=== PATIENT | female | born 1935 | race Caucasian/White ===

== ENCOUNTER 2017-11-08 23:16 | Inpatient (IN) | payer MEDICARE, OTHER ==
[2017-11-09 00:28] LABS: ANION GAP 11.8 mmol/L (10-20)
[2017-11-09] MEDS ORDERED: Acetaminophen 500 MG Tab PO PRN (02:13)
[2017-11-09] MEDS ORDERED: Docusate Sodium 100 MG Cap PO PRN (02:13)
--- NOTE | 2017-11-09 02:14 | EDM.PDOC ---
ED HPI GENERAL MEDICAL PROBLEM - General Chief Complaint: Genitourinary Problem Stated Complaint: urinary retention Time Seen by Provider: 11/08/17 23:25 Source of Information: Reports: Patient History Limitations: Reports: No Limitations - History of Present Illness INITIAL COMMENTS - FREE TEXT/NARRATIVE: PtVeronique presents to ER with complaints of weakness and dysuria/bladder pain. She was hospitalized from October 17 until October 26 with urosepsis and seizure activity. She was started on Keppra for the seizure activity. She states that she has noticed increased dysuria over the past several days, and complains of weakness. She denies any fever or chills. No nausea, vomiting, or diarrhea. Denies any chest pain or shortness of breath. Location: Reports: Abdomen Quality: Reports: Ache, Burning - Related Data Allergies Allergy/AdvReac Type Severity Reaction Status Date / Time No Known Allergies Allergy Verified 11/08/17 23:55 Home Meds: Home Meds Acetaminophen 1,000 mg PO TID PRN 10/16/17 [History] Apixaban [Eliquis] 5 mg PO BID 10/16/17 [History] Aspirin [Ecotrin] 81 mg PO DAILY 10/16/17 [History] Calcium Carbonate 500 mg PO DAILY 10/16/17 [History] Cholecalciferol (Vitamin D3) [Vitamin D3] 400 unit PO DAILY 10/16/17 [History] Diltiazem HCl [Tiazac] 240 mg PO DAILY 10/16/17 [History] Docusate Sodium [Colace] 100 mg PO BID PRN 10/16/17 [History] Ferrous Sulfate 325 mg PO DAILY 10/16/17 [History] Furosemide 40 mg PO DAILY 10/16/17 [History] Lisinopril 5 mg PO DAILY 10/16/17 [History] Magnesium Oxide [Magnesium] 400 mg PO DAILY 10/16/17 [History] Metoprolol Tartrate 100 mg PO DAILY 10/16/17 [History] Multivitamin [Daily Multiple Vitamin] 1 tab PO DAILY 10/16/17 [History] atorvaSTATin Calcium [Atorvastatin Calcium] 40 mg PO DAILY 10/16/17 [History] levETIRAcetam [Keppra] 1,500 mg PO BID 10/16/17 [History] metFORMIN HCl [Metformin HCl] 1,000 mg PO BIDMEALS 10/16/17 [History] Melatonin 3 mg PO BEDTIME 11/08/17 [History] Phenytoin Sodium Extended 300 mg PO BEDTIME 11/08/17 [History] hydrALAZINE [Apresoline] 50 mg PO TID 11/08/17 [History] Past Medical History HEENT History: Reports: Cataract Cardiovascular History: Reports: Heart Failure, High Cholesterol, Hypertension, Other (See Below) Other Cardiovascular History: paroxysmal atrial fib Genitourinary History: Reports: Renal Disease, UTI, Recurrent, Other (See Below) Other Genitourinary History: urinary hesitancy Musculoskeletal History: Reports: Osteoarthritis Neurological History: Reports: Seizure, Other (See Below) Other Neuro History: stenosis of carotid artery. partial symptomatic epilepsy with complex partial seizures, not intractable, without status epilepticus Endocrine/Metabolic History: Reports: Diabetes, Type II Hematologic History: Reports: Anemia Oncologic (Cancer) History: Reports: Breast - Past Surgical History Cardiovascular Surgical History: Reports: Other (See Below) Other Cardiovascular Surgeries/Procedures: Had carotid surgery, replaced vein with one from leg. GI Surgical History: Reports: Appendectomy, Cholecystectomy, Colonoscopy, Hernia , Abdominal Other GI Surgeries/Procedures: Has colonoscopy [id number] due to pre cancer polyps. Oncologic Surgical History: Reports: Lumpectomy Social & Family History - Family History Family Medical History: Noncontributory - Tobacco Use Smoking Status *Q: Unknown Ever Smoked - Caffeine Use Caffeine Use: Reports: Coffee ED ROS GENERAL - Review of Systems Review Of Systems: ROS reveals no pertinent complaints other than HPI. ED EXAM, GENERAL - Physical Exam Exam: See Below Exam Limited By: No Limitations General Appearance: Alert, WD/WN, No Apparent Distress Eye Exam: Bilateral Eye: EOMI, Normal Fundi, Normal Inspection, PERRL Nose: Normal Inspection, Normal Mucosa, No Blood Throat/Mouth: Normal Inspection, Normal Lips, Normal Teeth, Normal Gums, Normal Oropharynx, Normal Voice, No Airway Compromise Head: Atraumatic, Normocephalic Neck: Normal Inspection, Supple, Non-Tender, Full Range of Motion Respiratory/Chest: No Respiratory Distress, Lungs Clear, Normal Breath Sounds, No Accessory Muscle Use, Chest Non-Tender Cardiovascular: Normal Peripheral Pulses, Regular Rate, Rhythm, No Edema, No Gallop, No JVD, No Murmur, No Rub Peripheral Pulses: 4+: Radial (L), Radial (R) GI/Abdominal: Normal Bowel Sounds, Soft, Non-Tender, No Organomegaly, No Distention, No Abnormal Bruit, No Mass (Female) Exam: Deferred Rectal (Female) Exam: Deferred Back Exam: Normal Inspection, Full Range of Motion, NT Extremities: Normal Inspection, Normal Range of Motion, Non-Tender, Normal Capillary Refill, No Pedal Edema Neurological: Alert, Oriented, CN II-XII Intact, Normal Cognition, Normal Gait, Normal Reflexes, No Motor/Sensory Deficits Psychiatric: Normal Affect, Normal Mood Skin Exam: Warm, Dry, Intact, Normal Color, No Rash Lymphatic: No Adenopathy Course - Vital Signs Last Recorded V/S: Last Vital Signs Temp 36.4 C 11/09/17 01:22 Pulse 89 11/08/17 23:17 Resp 19 11/09/17 01:22 BP 159/55 H 11/09/17 01:22 Pulse Ox 97 11/08/17 23:17 - Orders/Labs/Meds Orders: Active Orders 24 hr Category Date Time Status Patient Status [ADT] Routine ADT 11/09/17 00:56 Active Labs: Laboratory Tests 11/09/17 11/09/17 11/09/17 Range/Units 00:05 00:05 00:05 WBC 10.7 H (4.0-10.0) x10^3/uL RBC 2.93 L (4.00-5.50) x10^6/uL Hgb 8.7 L D (12.0-16.0) g/dL Hct 27.1 L (33.0-47.0) % MCV 92.5 D (78.0-93.0) fL MCH 29.7 (26.0-32.0) pg MCHC 32.1 (32.0-36.0) g/dL RDW Coeff of Chiqui 15.2 H (10.0-15.0) % Plt Count 299 (130-400) x10^3/uL Neut % (Auto) 79.7 (50.0-80.0) % Lymph % (Auto) 9.1 L (25.0-50.0) % [place] % (Auto) 9.1 (2.0-11.0) % Eos % (Auto) 1.4 (0.0-4.0) % Baso % (Auto) 0.7 (0.2-1.2) % Sodium 122 L* (136-145) mmol/L Potassium 3.8 (3.5-5.1) mmol/L Chloride 92 L (98-107) mmol/L Carbon Dioxide 22 (21-32) mmol/L Anion Gap 11.8 (10-20) mmol/L BUN 16 D (7-18) mg/dL Creatinine 1.1 H (0.55-1.02) mg/dL Est Cr Clr Drug Dosing 38.19 mL/min Estimated GFR (MDRD) 48 Glucose 134 H (74-106) mg/dL Lactic Acid 0.9 (0.4-2.0) mmol/L Calcium 9.3 (8.5-10.1) mg/dL Corrected Calcium 10.18 H (8.5-10.1) mg/dL Total Bilirubin 0.4 (0.2-1.0) mg/dL AST 20 (15-37) U/L ALT 25 (14-59) U/L Alkaline Phosphatase 192 H (46-116) U/L Total Protein 7.3 (6.4-8.2) g/dL Albumin 2.9 L (3.4-5.0) g/dL Globulin 4.4 Albumin/Globulin Ratio 0.66 Urine Color (YELLOW) Urine Appearance (CLEAR) Urine pH (5.0-8.0) Ur Specific [place] Urine Protein (NEGATIVE) mg/dL Urine Glucose (UA) (NEGATIVE) mg/dL Urine Ketones (NEGATIVE) mg/dL Urine Occult Blood (NEGATIVE) Urine Nitrite (NEGATIVE) Urine Bilirubin (NEGATIVE) Urine Urobilinogen (0.2) EU/dL Ur Leukocyte Esterase (NEGATIVE) Urine RBC (NOT SEEN) /HPF Urine WBC (NOT SEEN) /HPF Ur Squamous Epith Cells (NEGATIVE) /HPF Urine Bacteria (NEGATIVE) /HPF Urine Mucus (NEGATIVE) /LPF 11/09/17 Range/Units 00:15 WBC (4.0-10.0) x10^3/uL RBC (4.00-5.50) x10^6/uL Hgb (12.0-16.0) g/dL Hct (33.0-47.0) % MCV (78.0-93.0) fL MCH (26.0-32.0) pg MCHC (32.0-36.0) g/dL RDW Coeff of Chiqui (10.0-15.0) % Plt Count (130-400) x10^3/uL Neut % (Auto) (50.0-80.0) % Lymph % (Auto) (25.0-50.0) % [place] % (Auto) (2.0-11.0) % Eos % (Auto) (0.0-4.0) % Baso % (Auto) (0.2-1.2) % Sodium (136-145) mmol/L Potassium (3.5-5.1) mmol/L Chloride (98-107) mmol/L Carbon Dioxide (21-32) mmol/L Anion Gap (10-20) mmol/L BUN (7-18) mg/dL Creatinine (0.55-1.02) mg/dL Est Cr Clr Drug Dosing mL/min Estimated GFR (MDRD) Glucose (74-106) mg/dL Lactic Acid (0.4-2.0) mmol/L Calcium (8.5-10.1) mg/dL Corrected Calcium (8.5-10.1) mg/dL Total Bilirubin (0.2-1.0) mg/dL AST (15-37) U/L ALT (14-59) U/L Alkaline Phosphatase (46-116) U/L Total Protein (6.4-8.2) g/dL Albumin (3.4-5.0) g/dL Globulin Albumin/Globulin Ratio Urine Color Light yellow (YELLOW) Urine Appearance Turbid H (CLEAR) Urine pH 6.5 (5.0-8.0) Ur Specific [place] 1.015 Urine Protein >=300 H (NEGATIVE) mg/dL Urine Glucose (UA) Negative (NEGATIVE) mg/dL Urine Ketones Negative (NEGATIVE) mg/dL Urine Occult Blood Small H (NEGATIVE) Urine Nitrite Negative (NEGATIVE) Urine Bilirubin Negative (NEGATIVE) Urine Urobilinogen 0.2 (0.2) EU/dL Ur Leukocyte Esterase Large H (NEGATIVE) Urine RBC 10-20 H (NOT SEEN) /HPF Urine WBC Packed (NOT SEEN) /HPF Ur Squamous Epith Cells Few H (NEGATIVE) /HPF Urine Bacteria Moderate H (NEGATIVE) /HPF Urine Mucus Not seen (NEGATIVE) /LPF Departure - Departure Time of Disposition: 01:15 Disposition: Admitted As Inpatient 68 Clinical Impression: UTI, Urinary tract infectious disease, Hyponatremia - Discharge Information - Problem List Review Problem List Initiated/Reviewed/Updated: Yes - My Orders Last 24 Hours: My Active Orders 11/09/17 00:56 Patient Status [ADT] Routine - Assessment/Plan Last 24 Hours: My Active Orders 11/09/17 00:56 Patient Status [ADT] Routine Plan: will be admitted acute. Dr. Henriquez is admitting. Please refer to her H and P for orders.
--- NOTE | 2017-11-09 02:20 | PCM.HP ---
H&P History of Present Illness - General Date of Service: 11/09/17 Admit Problem/Dx: Admission Diagnosis/Problem Admission Diagnosis/Problem Hyponatremia Source of Information: Patient History Limitations: Reports: No Limitations - History of Present Illness Initial Comments - Free Text/Narative: Mrs. Vasquez is an 82 yo female who presented to the ER for evaluation of worsening dysuria over the past 2-3 days. She had been hospitalized in [place] from 10/17-10/26 and was discharged with a barnes catheter in place. On 11/05, the catheter was removed and she voided successfully. Ever since then, she has had worsening and worsening dysuria. She has also felt that she was not emptying her bladder well and has been having some lower abdominal and lower back pain. She denies any flank pain, fever, or chills. She states she has a tendency towards sepsis so did not want to wait any longer before coming in. She has also been feeling generally weak ever since she got out of the hospital and that has not gotten worse. Her appetite has not been great but she has still been eating well at her daughter's house. Her hospitalization in [place] involved a significant amount of confusion but she feels she is pretty much back to normal now. She has gained 4 pounds this week, which she attributes to her daughter's good cooking. She has had some lower extremity edema as well as some shortness of breath as well. She has had some nausea but no vomiting. She has been constipated but had some diarrhea 2 days ago after taking milk of magnesia. This is a normal pattern for her. Lower Abdominal Pain Score (Numeric/FACES): 3 - Related Data Allergies/Adverse Reactions: Allergies Allergy/AdvReac Type Severity Reaction Status Date / Time No Known Allergies Allergy Verified 11/08/17 23:55 Home Medications: Home Meds Apixaban [Eliquis] 5 mg PO BID 10/16/17 [History] Aspirin [Ecotrin] 81 mg PO DAILY 10/16/17 [History] Cholecalciferol (Vitamin D3) [Vitamin D3] 400 unit PO DAILY 10/16/17 [History] Diltiazem HCl [Tiazac] 240 mg PO DAILY 10/16/17 [History] Docusate Sodium [Colace] 100 mg PO BID PRN 10/16/17 [History] Furosemide 40 mg PO DAILY 10/16/17 [History] Lisinopril 5 mg PO DAILY 10/16/17 [History] Magnesium Oxide [Magnesium] 400 mg PO DAILY 10/16/17 [History] Metoprolol Tartrate 100 mg PO DAILY 10/16/17 [History] RX: Acetaminophen 1,000 mg PO TID PRN 10/16/17 [History] RX: Calcium Carbonate 500 mg PO DAILY 10/16/17 [History] RX: Ferrous Sulfate 325 mg PO 10/16/17 [History] RX: Multivitamin [Daily Multiple Vitamin] 1 tab PO DAILY 10/16/17 [History] RX: levETIRAcetam [Keppra] 1,500 mg PO BID 10/16/17 [History] atorvaSTATin Calcium [Atorvastatin Calcium] 40 mg PO DAILY 10/16/17 [History] metFORMIN HCl [Metformin HCl] 1,000 mg PO BIDMEALS 10/16/17 [History] RX: Melatonin 3 mg PO BEDTIME 11/08/17 [History] RX: Phenytoin Sodium Extended 300 mg PO BEDTIME 11/08/17 [History] RX: hydrALAZINE [Apresoline] 50 mg PO TID 11/08/17 [History] RX: Omeprazole 20 mg PO DAILY 11/09/17 [History] Past Medical History HEENT History: Reports: Cataract Cardiovascular History: Reports: Heart Failure, High Cholesterol, Hypertension, Other (See Below) Other Cardiovascular History: paroxysmal atrial fib Respiratory History: Reports: None Gastrointestinal History: Reports: Colon Polyp, GERD, GI Bleed Genitourinary History: Reports: Renal Disease, UTI, Recurrent, Other (See Below) Other Genitourinary History: urinary hesitancy Musculoskeletal History: Reports: Osteoarthritis Neurological History: Reports: Seizure, Other (See Below) Other Neuro History: stenosis of carotid artery. partial symptomatic epilepsy with complex partial seizures, not intractable, without status epilepticus Psychiatric History: Reports: None Endocrine/Metabolic History: Reports: Diabetes, Type II Hematologic History: Reports: Anemia Oncologic (Cancer) History: Reports: Breast Dermatologic History: Reports: None - Infectious Disease History Infectious Disease History: Reports: None - Past Surgical History Cardiovascular Surgical History: Reports: Other (See Below) Other Cardiovascular Surgeries/Procedures: Had carotid surgery, replaced vein with one from leg. GI Surgical History: Reports: Appendectomy, Cholecystectomy, Colonoscopy, Hernia , Abdominal Other GI Surgeries/Procedures: Has colonoscopy [id number] due to pre cancer polyps. Oncologic Surgical History: Reports: Biopsy of Breast, Lumpectomy Social & Family History - Family History Neurological: Reports: CVA - Tobacco Use Smoking Status *Q: Former Smoker - Caffeine Use Caffeine Use: Reports: Coffee - Alcohol Use Alcohol Use History: No Alcohol Use in Last Twelve Months: Yes Alcohol Use Frequency: Rarely - Recreational Drug Use Recreational Drug Use: No - Living Situation & Occupation Living situation: Reports: , Alone Occupation: Retired H&P Review of Systems - Review of Systems: Review Of Systems: See Below General: Reports: No Symptoms HEENT: Reports: No Symptoms Pulmonary: Reports: Shortness of Breath. Denies: Cough, Sputum Cardiovascular: Reports: No Symptoms Gastrointestinal: Reports: Abdominal Pain, Nausea. Denies: Black Stool, Bloody Stool, Vomiting Genitourinary: Reports: Dysuria, Frequency, Retention Musculoskeletal: Reports: No Symptoms Skin: Reports: No Symptoms Psychiatric: Reports: No Symptoms Neurological: Reports: No Symptoms Exam - Exam Exam: See Below - Vital Signs Vital Signs: Last Vital Signs Temp 36.4 C 11/09/17 01:22 Pulse 89 11/08/17 23:17 Resp 19 11/09/17 01:22 BP 159/55 H 11/09/17 01:22 Pulse Ox 97 11/08/17 23:17 Weight: 75.296 kg - Exam General: Alert, Oriented (x4) HEENT: Conjunctiva Clear, EOMI, Pupils Equal, Pupils Reactive, Other (lips cracked, mucus membranes slightly dry) Neck: Supple, Trachea Midline. No: Lymphadenopathy, Thyromegaly Lungs: Clear to Auscultation, Normal Respiratory Effort Cardiovascular: Regular Rate, Regular Rhythm, Normal S1, Normal S2 GI/Abdominal Exam: Normal Bowel Sounds, Soft, No Organomegaly, No Distention, No Mass, Tender (mild suprapubic tenderness to palpation without rebound, rigidity, or guarding) Back Exam: Normal Inspection. No: CVA Tenderness (L), CVA Tenderness (R) Extremities: Normal Inspection, Pedal Edema (trace to just above the ankles bilaterally) Peripheral Pulses: 2+: Radial (L), Radial (R) Skin: Warm, Dry, Intact Neuro Extensive - Mental Status: Alert, Oriented x3, Normal Mood/Affect, Normal Cognition, Other (Strength symmetric in all 4 extremities) Neuro Extensive - Motor, Sensory, Reflexes: CN II-XII Intact - Patient Data Lab Results Last 24 hrs: Laboratory Results - last 24 hr 11/09/17 11/09/17 11/09/17 Range/Units 00:05 00:05 00:05 WBC 10.7 H (4.0-10.0) x10^3/uL RBC 2.93 L (4.00-5.50) x10^6/uL Hgb 8.7 L D (12.0-16.0) g/dL Hct 27.1 L (33.0-47.0) % MCV 92.5 D (78.0-93.0) fL MCH 29.7 (26.0-32.0) pg MCHC 32.1 (32.0-36.0) g/dL RDW Coeff of Chiqui 15.2 H (10.0-15.0) % Plt Count 299 (130-400) x10^3/uL Neut % (Auto) 79.7 (50.0-80.0) % Lymph % (Auto) 9.1 L (25.0-50.0) % [place] % (Auto) 9.1 (2.0-11.0) % Eos % (Auto) 1.4 (0.0-4.0) % Baso % (Auto) 0.7 (0.2-1.2) % Sodium 122 L* (136-145) mmol/L Potassium 3.8 (3.5-5.1) mmol/L Chloride 92 L (98-107) mmol/L Carbon Dioxide 22 (21-32) mmol/L Anion Gap 11.8 (10-20) mmol/L BUN 16 D (7-18) mg/dL Creatinine 1.1 H (0.55-1.02) mg/dL Est Cr Clr Drug Dosing 38.19 mL/min Estimated GFR (MDRD) 48 Glucose 134 H (74-106) mg/dL Lactic Acid 0.9 (0.4-2.0) mmol/L Calcium 9.3 (8.5-10.1) mg/dL Corrected Calcium 10.18 H (8.5-10.1) mg/dL Total Bilirubin 0.4 (0.2-1.0) mg/dL AST 20 (15-37) U/L ALT 25 (14-59) U/L Alkaline Phosphatase 192 H (46-116) U/L Total Protein 7.3 (6.4-8.2) g/dL Albumin 2.9 L (3.4-5.0) g/dL Globulin 4.4 Albumin/Globulin Ratio 0.66 Urine Color (YELLOW) Urine Appearance (CLEAR) Urine pH (5.0-8.0) Ur Specific [place] Urine Protein (NEGATIVE) mg/dL Urine Glucose (UA) (NEGATIVE) mg/dL Urine Ketones (NEGATIVE) mg/dL Urine Occult Blood (NEGATIVE) Urine Nitrite (NEGATIVE) Urine Bilirubin (NEGATIVE) Urine Urobilinogen (0.2) EU/dL Ur Leukocyte Esterase (NEGATIVE) Urine RBC (NOT SEEN) /HPF Urine WBC (NOT SEEN) /HPF Ur Squamous Epith Cells (NEGATIVE) /HPF Urine Bacteria (NEGATIVE) /HPF Urine Mucus (NEGATIVE) /LPF 11/09/17 Range/Units 00:15 WBC (4.0-10.0) x10^3/uL RBC (4.00-5.50) x10^6/uL Hgb (12.0-16.0) g/dL Hct (33.0-47.0) % MCV (78.0-93.0) fL MCH (26.0-32.0) pg MCHC (32.0-36.0) g/dL RDW Coeff of Chiqui (10.0-15.0) % Plt Count (130-400) x10^3/uL Neut % (Auto) (50.0-80.0) % Lymph % (Auto) (25.0-50.0) % [place] % (Auto) (2.0-11.0) % Eos % (Auto) (0.0-4.0) % Baso % (Auto) (0.2-1.2) % Sodium (136-145) mmol/L Potassium (3.5-5.1) mmol/L Chloride (98-107) mmol/L Carbon Dioxide (21-32) mmol/L Anion Gap (10-20) mmol/L BUN (7-18) mg/dL Creatinine (0.55-1.02) mg/dL Est Cr Clr Drug Dosing mL/min Estimated GFR (MDRD) Glucose (74-106) mg/dL Lactic Acid (0.4-2.0) mmol/L Calcium (8.5-10.1) mg/dL Corrected Calcium (8.5-10.1) mg/dL Total Bilirubin (0.2-1.0) mg/dL AST (15-37) U/L ALT (14-59) U/L Alkaline Phosphatase (46-116) U/L Total Protein (6.4-8.2) g/dL Albumin (3.4-5.0) g/dL Globulin Albumin/Globulin Ratio Urine Color Light yellow (YELLOW) Urine Appearance Turbid H (CLEAR) Urine pH 6.5 (5.0-8.0) Ur Specific [place] 1.015 Urine Protein >=300 H (NEGATIVE) mg/dL Urine Glucose (UA) Negative (NEGATIVE) mg/dL Urine Ketones Negative (NEGATIVE) mg/dL Urine Occult Blood Small H (NEGATIVE) Urine Nitrite Negative (NEGATIVE) Urine Bilirubin Negative (NEGATIVE) Urine Urobilinogen 0.2 (0.2) EU/dL Ur Leukocyte Esterase Large H (NEGATIVE) Urine RBC 10-20 H (NOT SEEN) /HPF Urine WBC Packed (NOT SEEN) /HPF Ur Squamous Epith Cells Few H (NEGATIVE) /HPF Urine Bacteria Moderate H (NEGATIVE) /HPF Urine Mucus Not seen (NEGATIVE) /LPF Result Diagrams: 11/09/17 00:05 11/09/17 00:05 Дмитрий Results Last 24 hrs: Microbiology 11/09/17 01:10 Anaerobic Blood Culture - Final Blood - Venous - Lab Draw 11/09/17 01:00 Anaerobic Blood Culture - Final Blood - Venous *Q Meaningful Use (ADM) - VTE *Q VTE Anticoagulation Contraindications: Med/TX Not Indicated/Need - Problem List (1) Hyponatremia SNOMED Code(s): 60379867 ICD Code: E87.1 - HYPO-OSMOLALITY AND HYPONATREMIA Status: Acute Current Visit: Yes (2) UTI, Urinary tract infectious disease SNOMED Code(s): 65642625 ICD Code: N39.0 - URINARY TRACT INFECTION, SITE NOT SPECIFIED Status: Acute Current Visit: Yes (3) Anemia SNOMED Code(s): 173882943 ICD Code: D64.9 - ANEMIA, UNSPECIFIED Status: Acute Current Visit: No Qualifiers: Anemia type: iron deficiency Iron deficiency anemia type: chronic blood loss Qualified Code(s): D50.0 - Iron deficiency anemia secondary to blood loss (chronic) (4) Acute kidney injury SNOMED Code(s): 90028094 ICD Code: N17.9 - ACUTE KIDNEY FAILURE, UNSPECIFIED Status: Acute Current Visit: Yes (5) CKD (chronic kidney disease) SNOMED Code(s): 470673107 ICD Code: N18.9 - CHRONIC KIDNEY DISEASE, UNSPECIFIED Status: Chronic Current Visit: No Qualifiers: Chronic kidney disease stage: stage 3 (moderate) Qualified Code(s): N18.3 - Chronic kidney disease, stage 3 (moderate) (6) Seizure disorder SNOMED Code(s): 808987640 ICD Code: G40.909 - EPILEPSY, UNSP, NOT INTRACTABLE, WITHOUT STATUS EPILEPTICUS Status: Chronic Current Visit: Yes (7) DM2 (diabetes mellitus, type 2) SNOMED Code(s): 52100509 ICD Code: E11.9 - TYPE 2 DIABETES MELLITUS WITHOUT COMPLICATIONS Status: Chronic Current Visit: No Qualifiers: Diabetes mellitus fci insulin use: without superintendent container terminal use Diabetes mellitus complication status: without complication Qualified Code(s): E11.9 - Type 2 diabetes mellitus without complications (8) Hypercholesteremia SNOMED Code(s): 14870115 ICD Code: E78.00 - PURE HYPERCHOLESTEROLEMIA, UNSPECIFIED Status: Chronic Current Visit: No (9) Hypertension SNOMED Code(s): 45989815 ICD Code: I10 - ESSENTIAL (PRIMARY) HYPERTENSION Status: Chronic Current Visit: No Qualifiers: Hypertension type: essential hypertension Qualified Code(s): I10 - Essential (primary) hypertension (10) CHF (congestive heart failure) SNOMED Code(s): 32323719 ICD Code: I50.9 - HEART FAILURE, UNSPECIFIED Status: Chronic Current Visit: Yes Qualifiers: Heart failure type: diastolic Heart failure chronicity: chronic Qualified Code(s): I50.32 - Chronic diastolic (congestive) heart failure (11) Atrial fibrillation SNOMED Code(s): 27327794 ICD Code: I48.91 - UNSPECIFIED ATRIAL FIBRILLATION Status: Chronic Current Visit: Yes Qualifiers: Atrial fibrillation type: paroxysmal Qualified Code(s): I48.0 - Paroxysmal atrial fibrillation (12) GERD (gastroesophageal reflux disease) SNOMED Code(s): 243194211 ICD Code: K21.9 - GASTRO-ESOPHAGEAL REFLUX DISEASE WITHOUT ESOPHAGITIS Status: Chronic Current Visit: Yes Qualifiers: Esophagitis presence: esophagitis presence not specified Qualified Code(s) : K21.9 - Gastro-esophageal reflux disease without esophagitis Problem List Initiated/Reviewed/Updated: Yes Orders Last 24hrs: Active Orders 24 hr Category Date Time Status Patient Status [ADT] Routine ADT 11/09/17 00:56 Active Notify Provider Vital Signs [RC] ASDIRECTED Care 11/09/17 02:19 Ordered Oxygen Therapy [RC] PRN Care 11/09/17 02:19 Ordered Up With Assistance [RC] ASDIRECTED Care 11/09/17 02:18 Ordered VTE/DVT Education [RC] PER UNIT ROUTINE Care 11/09/17 02:19 Ordered Vital Signs [RC] Q4H Care 11/09/17 02:19 Ordered Regular Diet [DIET] Diet 11/09/17 Breakfast Ordered BASIC METABOLIC PANEL,BMP [CHEM] Routine Lab 11/09/17 05:11 Ordered CBC WITH AUTO DIFF [HEME] Routine Lab 11/09/17 05:11 Ordered CULTURE BLOOD [BC] Stat Lab 11/09/17 01:00 Results CULTURE BLOOD [BC] Stat Lab 11/09/17 01:10 Results CULTURE URINE [RM] Routine Lab 11/09/17 02:12 Ordered PRO B-TYPE NATRIUR PEPT,BNPPRO [CHEM] Routine Lab 11/09/17 05:11 Ordered Acetaminophen [Tylenol Extra Strength] Med 11/09/17 02:13 Ordered 1,000 mg PO TID PRN Apixaban [Eliquis] Med 11/09/17 08:00 Ordered 5 mg PO BID Diltiazem HCl [Tiazac] Med 11/09/17 08:00 Ordered 240 mg PO DAILY Docusate Sodium [Colace] Med 11/09/17 02:13 Ordered 100 mg PO BID PRN Ferrous Sulfate Med 11/09/17 08:00 Ordered 325 mg PO DAILY Furosemide [Lasix] Med 11/09/17 08:00 Ordered 40 mg PO DAILY Melatonin Med 11/09/17 20:00 Ordered 3 mg PO BEDTIME Phenytoin Sodium Extended [Phenytoin Sodium Extended] Med 11/09/17 20:00 Ordered 300 mg PO BEDTIME Sodium Chloride 0.9% [Normal Saline] 1,000 ml Med 11/09/17 02:15 Ordered IV ASDIRECTED Sulfamethoxazole/Trimethoprim [Septra DS] Med 11/09/17 02:15 Ordered 1 tab PO Q12H levETIRAcetam [Keppra] Med 11/09/17 08:00 Ordered 1,500 mg PO BID Anticoagulation Contraindications VTE [AST] Per Unit Oth 11/09/17 02:18 Ordered Routine Blood Culture x2 Reflex Set [OM.PC] Stat Ot 11/09/17 01:23 Ordered Resuscitation Status Routine Resus Stat 11/09/17 02:18 Ordered Medication Orders Acetaminophen (Tylenol Extra Strength) 1,000 mg PO TID PRN PRN Reason: Pain Docusate Sodium (Colace) 100 mg PO BID PRN PRN Reason: Constipation Ferrous Sulfate (Ferrous Sulfate) 325 mg PO DAILY LA Furosemide (Lasix) 40 mg PO DAILY LA Sodium Chloride (Normal Saline) 1,000 mls @ 75 mls/hr IV ASDIRECTED LA Levetiracetam (Keppra) 1,500 mg PO BID LA Melatonin (Melatonin) 3 mg PO BEDTIME LA Non-Formulary Medication (Apixaban [Eliquis]) 5 mg PO BID LA Non-Formulary Medication (Diltiazem Hcl [Tiazac]) 240 mg PO DAILY LA Non-Formulary Medication (Phenytoin Sodium Extended [Phenytoin Sodium Extended] ) 300 mg PO BEDTIME LA Trimethoprim/Sulfamethoxazole (Septra Ds) 1 tab PO Q12H LA Assessment/Plan Comment:: #1 Hyponatremia - Cause is somewhat unclear. - In the setting of ADELAIDA and slightly dry mucus membranes, would suspect most likely cause to be hypovolemic hyponatremia secondary to inadequate intake since hospital dismissal; however, her history does not really suggest significantly inadequate intake or GI losses and her sodium was much higher than this with much worse ADELAIDA. - Is not on traditional medications to cause SIADH, nor does she have another obvious reason for this. - Consider hypervolemic hyponatremia but she does not appear to be in significant enough heart failure to cause this. - Unable to do urine creatinine and sodium testing on a timely basis to help clarify. - Thus, given highest suspicion for hypovolemic hyponatremia, will give gentle IV fluids overnight and recheck Na in the am. - NS @ 75 cc/hr. - Recheck sodium with am labs. - Next steps depend on response to IV fluids. Do not expect dramatic response if this is hypovolemic hyponatremia; more monitoring for any worsening as would occur with SIADH and will plan to increase fluid rate slightly if tolerated and no further drop in sodium. #2 UTI - Consider dysuria is from recent catheter removal but she is well versed on symptoms due to previous UTI's and has had a tendency towards fairly rapid decompensation into sepsis. - Therefore, in light of her abnormal u/a, will go ahead and treat now. - She has done well on bactrim in the past; therefore, will use this again now. - CrCl is >30 so DS dosing is acceptable. 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 - Has a history of chronic GI blood loss without any current symptoms of a GI bleed. - Hold ASA until Hgb recheck tomorrow am. - Will recheck with am labs. #4 ADELAIDA superimposed on CKD stage III - Inter Com Installer increased to 1.1 with baseline around 0.8. - IV fluids as above. - Recheck labs in the am. #5 Seizure Disorder - Continue phenytoin and keppra. - As above, doubt contribution from these medications to hyponatremia. #6 Diabetes Mellitus, Type II - Hold metformin while hospitalized. - QID glucoses with SSI PRN. #7 Hyperlipidemia - Continue atorvastatin. #8 Hypertension - Continue home antihypertensives. #9 Chronic diastolic CHF - Mild increase in dyspnea and weight gain with normal lung exam and minimal peripheral edema on exam. - Will hold off on any additional lasix tonight but monitor closely for how she handles the fluid load. - Check BNP with am labs. #10 Paroxysmal atrial fibrillation - Continue home medications. - Patient is on tartrate formulation of metoprolol once/day, which is not typical dosing. Has done fine on this and was continued that way while hospitalized in [place] as well. Will, therefore, continue this will admitted here as well. - Patient is on eliquis for anticoagulation. #11 GERD - Hold omeprazole for now given potential for hyponatremia and interaction with phenytoin. - Will reassess necessity after Hgb is back in the am. Admitted to [facility] due to anticipation she will require at least 2 nights of admission as well as the level of monitoring and intervention required for her diagnoses as above. No VTE prophylaxis is warranted given she is therapeutically anticoagulated on eliquis. Upon discussion, she wishes to be DNR /DNI. Patient with recent confusion in the hospital but is fully oriented tonight and able to have a meaningful conversation about this; at this point no reason she cannot make her own decision in this regard.
[2017-11-09] MEDS: Sodium Chloride 0.9% 1,000 ML IV SCH ×2 (03:00→16:15)
[2017-11-09] MEDS: Sulfamethoxazole/Trimethoprim 800-160 MG Tab PO SCH ×2 (03:05→13:22)
[2017-11-09] MEDS: atorvaSTATin 40 MG Tab PO SCH (07:52)
[2017-11-09] MEDS: Apixaban 2.5 MG Tab PO SCH ×2 (07:52→19:25)
[2017-11-09] MEDS: Furosemide 40 MG Tab PO SCH (07:52)
[2017-11-09] MEDS: Diltiazem 240 MG Cap.ER PO SCH (07:53)
[2017-11-09] MEDS: levETIRAcetam 500 MG Tab PO SCH ×2 (07:53→19:27)
[2017-11-09] MEDS: Lisinopril 5 MG Tab PO SCH (07:53)
[2017-11-09] MEDS: Metoprolol Tartrate 50 MG Tab PO SCH (07:54)
[2017-11-09] MEDS: hydrALAZINE 25 MG Tab PO SCH ×3 (07:56→17:41)
[2017-11-09 10:32] LABS: ANION GAP 16.3 mmol/L (10-20)
--- NOTE | 2017-11-09 11:34 | PCM.PN ---
- General Info Date of Service: 11/09/17 Subjective Update: Patient visited this morning with daughter at bedside. She is tired this morning but did not sleep much overnight. Still feeling generally weak; no focal symptoms. Shortness of breath is improved; no increase in leg swelling. Had urinary retention overnight and indwelling catheter was placed. Her daughter feels she is acting like her normal self today. Patient notes she was on 1500 cc fluid restriction in [place] but has not been following that at home. Follows a low salt diet and has been drinking essentially only water. - Review of Systems General: Reports: No Symptoms HEENT: Reports: No Symptoms Pulmonary: Reports: No Symptoms Cardiovascular: Reports: No Symptoms Gastrointestinal: Reports: Abdominal Pain, Nausea. Denies: Constipation, Diarrhea, Vomiting Genitourinary: Reports: Retention Musculoskeletal: Reports: No Symptoms Skin: Reports: No Symptoms Neurological: Reports: No Symptoms - Patient Data Vitals - Most Recent: Last Vital Signs Temp 37.1 C 11/09/17 10:00 Pulse 78 11/09/17 10:00 Resp 20 11/09/17 10:00 BP 123/77 11/09/17 10:00 Pulse Ox 97 11/09/17 10:00 Weight - Most Recent: 75.296 kg I&O - Last 24 Hours: Intake & Output 11/08/17 11/09/17 11/09/17 22:59 06:59 14:59 Intake Total 736 Output Total 750 Balance -14 Lab Results Last 24 Hours: Laboratory Results - last 24 hr 11/09/17 11/09/17 11/09/17 Range/Units 00:05 00:05 00:05 WBC 10.7 H (4.0-10.0) x10^3/uL RBC 2.93 L (4.00-5.50) x10^6/uL Hgb 8.7 L D (12.0-16.0) g/dL Hct 27.1 L (33.0-47.0) % MCV 92.5 D (78.0-93.0) fL MCH 29.7 (26.0-32.0) pg MCHC 32.1 (32.0-36.0) g/dL RDW Coeff of Chiqui 15.2 H (10.0-15.0) % Plt Count 299 (130-400) x10^3/uL Neut % (Auto) 79.7 (50.0-80.0) % Lymph % (Auto) 9.1 L (25.0-50.0) % Randolph % (Auto) 9.1 (2.0-11.0) % Eos % (Auto) 1.4 (0.0-4.0) % Baso % (Auto) 0.7 (0.2-1.2) % POC Sodium Sodium 122 L* (136-145) mmol/L POC Potassium Potassium 3.8 (3.5-5.1) mmol/L POC Chloride Chloride 92 L (98-107) mmol/L Carbon Dioxide 22 (21-32) mmol/L POC Total CO2 Anion Gap 11.8 (10-20) mmol/L POC Anion Gap POC BUN BUN 16 D (7-18) mg/dL Creatinine 1.1 H (0.55-1.02) mg/dL POC Creatinine Est Cr Clr Drug Dosing 38.19 mL/min Estimated GFR (MDRD) 48 Glucose 134 H (74-106) mg/dL POC Glucose (74-106) mg/dL Lactic Acid 0.9 (0.4-2.0) mmol/L Calcium 9.3 (8.5-10.1) mg/dL Corrected Calcium 10.18 H (8.5-10.1) mg/dL Total Bilirubin 0.4 (0.2-1.0) mg/dL AST 20 (15-37) U/L ALT 25 (14-59) U/L Alkaline Phosphatase 192 H (46-116) U/L NT-Pro-B Natriuret Pep (<=450) pg/mL Total Protein 7.3 (6.4-8.2) g/dL Albumin 2.9 L (3.4-5.0) g/dL Globulin 4.4 Albumin/Globulin Ratio 0.66 Urine Color (YELLOW) Urine Appearance (CLEAR) Urine pH (5.0-8.0) Ur Specific [place] Urine Protein (NEGATIVE) mg/dL Urine Glucose (UA) (NEGATIVE) mg/dL Urine Ketones (NEGATIVE) mg/dL Urine Occult Blood (NEGATIVE) Urine Nitrite (NEGATIVE) Urine Bilirubin (NEGATIVE) Urine Urobilinogen (0.2) EU/dL Ur Leukocyte Esterase (NEGATIVE) Urine RBC (NOT SEEN) /HPF Urine WBC (NOT SEEN) /HPF Ur Squamous Epith Cells (NEGATIVE) /HPF Urine Bacteria (NEGATIVE) /HPF Urine Mucus (NEGATIVE) /LPF 11/09/17 11/09/17 11/09/17 Range/Units 00:15 06:35 07:49 WBC 8.9 (4.0-10.0) x10^3/uL RBC 3.01 L (4.00-5.50) x10^6/uL Hgb 9.1 L (12.0-16.0) g/dL Hct 27.6 L (33.0-47.0) % MCV 91.7 (78.0-93.0) fL MCH 30.2 (26.0-32.0) pg MCHC 33.0 (32.0-36.0) g/dL RDW Coeff of Chiqui 15.1 H (10.0-15.0) % Plt Count 283 (130-400) x10^3/uL Neut % (Auto) 76.4 (50.0-80.0) % Lymph % (Auto) 10.8 L (25.0-50.0) % Randolph % (Auto) 11.0 (2.0-11.0) % Eos % (Auto) 1.2 (0.0-4.0) % Baso % (Auto) 0.6 (0.2-1.2) % POC Sodium Sodium (136-145) mmol/L POC Potassium Potassium (3.5-5.1) mmol/L POC Chloride Chloride (98-107) mmol/L Carbon Dioxide (21-32) mmol/L POC Total CO2 Anion Gap (10-20) mmol/L POC Anion Gap POC BUN BUN (7-18) mg/dL Creatinine (0.55-1.02) mg/dL POC Creatinine Est Cr Clr Drug Dosing mL/min Estimated GFR (MDRD) Glucose (74-106) mg/dL POC Glucose 135 H (74-106) mg/dL Lactic Acid (0.4-2.0) mmol/L Calcium (8.5-10.1) mg/dL Corrected Calcium (8.5-10.1) mg/dL Total Bilirubin (0.2-1.0) mg/dL AST (15-37) U/L ALT (14-59) U/L Alkaline Phosphatase (46-116) U/L NT-Pro-B Natriuret Pep (<=450) pg/mL Total Protein (6.4-8.2) g/dL Albumin (3.4-5.0) g/dL Globulin Albumin/Globulin Ratio Urine Color Light yellow (YELLOW) Urine Appearance Turbid H (CLEAR) Urine pH 6.5 (5.0-8.0) Ur Specific [place] 1.015 Urine Protein >=300 H (NEGATIVE) mg/dL Urine Glucose (UA) Negative (NEGATIVE) mg/dL Urine Ketones Negative (NEGATIVE) mg/dL Urine Occult Blood Small H (NEGATIVE) Urine Nitrite Negative (NEGATIVE) Urine Bilirubin Negative (NEGATIVE) Urine Urobilinogen 0.2 (0.2) EU/dL Ur Leukocyte Esterase Large H (NEGATIVE) Urine RBC 10-20 H (NOT SEEN) /HPF Urine WBC Packed (NOT SEEN) /HPF Ur Squamous Epith Cells Few H (NEGATIVE) /HPF Urine Bacteria Moderate H (NEGATIVE) /HPF Urine Mucus Not seen (NEGATIVE) /LPF 11/09/17 11/09/17 11/09/17 Range/Units 07:49 10:16 10:27 WBC (4.0-10.0) x10^3/uL RBC (4.00-5.50) x10^6/uL Hgb (12.0-16.0) g/dL Hct Cancelled (33.0-47.0) % MCV (78.0-93.0) fL MCH (26.0-32.0) pg MCHC (32.0-36.0) g/dL RDW Coeff of Chiqui (10.0-15.0) % Plt Count (130-400) x10^3/uL Neut % (Auto) (50.0-80.0) % Lymph % (Auto) (25.0-50.0) % Randolph % (Auto) (2.0-11.0) % Eos % (Auto) (0.0-4.0) % Baso % (Auto) (0.2-1.2) % POC Sodium Cancelled Sodium 125 L* (136-145) mmol/L POC Potassium Cancelled Potassium 4.3 (3.5-5.1) mmol/L POC Chloride Cancelled Chloride 92 L (98-107) mmol/L Carbon Dioxide 21 (21-32) mmol/L POC Total CO2 Cancelled Anion Gap 16.3 (10-20) mmol/L POC Anion Gap Cancelled POC BUN Cancelled BUN 15 (7-18) mg/dL Creatinine 1.0 (0.55-1.02) mg/dL POC Creatinine Cancelled Est Cr Clr Drug Dosing 42.00 mL/min Estimated GFR (MDRD) 53 Glucose 133 H (74-106) mg/dL POC Glucose Cancelled (74-106) mg/dL Lactic Acid (0.4-2.0) mmol/L Calcium 8.9 (8.5-10.1) mg/dL Corrected Calcium (8.5-10.1) mg/dL Total Bilirubin (0.2-1.0) mg/dL AST (15-37) U/L ALT (14-59) U/L Alkaline Phosphatase (46-116) U/L NT-Pro-B Natriuret Pep 3707 H (<=450) pg/mL Total Protein (6.4-8.2) g/dL Albumin (3.4-5.0) g/dL Globulin Albumin/Globulin Ratio Urine Color (YELLOW) Urine Appearance (CLEAR) Urine pH (5.0-8.0) Ur Specific [place] Urine Protein (NEGATIVE) mg/dL Urine Glucose (UA) (NEGATIVE) mg/dL Urine Ketones (NEGATIVE) mg/dL Urine Occult Blood (NEGATIVE) Urine Nitrite (NEGATIVE) Urine Bilirubin (NEGATIVE) Urine Urobilinogen (0.2) EU/dL Ur Leukocyte Esterase (NEGATIVE) Urine RBC (NOT SEEN) /HPF Urine WBC (NOT SEEN) /HPF Ur Squamous Epith Cells (NEGATIVE) /HPF Urine Bacteria (NEGATIVE) /HPF Urine Mucus (NEGATIVE) /LPF 11/09/17 Range/Units 10:46 WBC (4.0-10.0) x10^3/uL RBC (4.00-5.50) x10^6/uL Hgb (12.0-16.0) g/dL Hct (33.0-47.0) % MCV (78.0-93.0) fL MCH (26.0-32.0) pg MCHC (32.0-36.0) g/dL RDW Coeff of Chiqui (10.0-15.0) % Plt Count (130-400) x10^3/uL Neut % (Auto) (50.0-80.0) % Lymph % (Auto) (25.0-50.0) % Randolph % (Auto) (2.0-11.0) % Eos % (Auto) (0.0-4.0) % Baso % (Auto) (0.2-1.2) % POC Sodium Sodium (136-145) mmol/L POC Potassium Potassium (3.5-5.1) mmol/L POC Chloride Chloride (98-107) mmol/L Carbon Dioxide (21-32) mmol/L POC Total CO2 Anion Gap (10-20) mmol/L POC Anion Gap POC BUN BUN (7-18) mg/dL Creatinine (0.55-1.02) mg/dL POC Creatinine Est Cr Clr Drug Dosing mL/min Estimated GFR (MDRD) Glucose (74-106) mg/dL POC Glucose 199 H (74-106) mg/dL Lactic Acid (0.4-2.0) mmol/L Calcium (8.5-10.1) mg/dL Corrected Calcium (8.5-10.1) mg/dL Total Bilirubin (0.2-1.0) mg/dL AST (15-37) U/L ALT (14-59) U/L Alkaline Phosphatase (46-116) U/L NT-Pro-B Natriuret Pep (<=450) pg/mL Total Protein (6.4-8.2) g/dL Albumin (3.4-5.0) g/dL Globulin Albumin/Globulin Ratio Urine Color (YELLOW) Urine Appearance (CLEAR) Urine pH (5.0-8.0) Ur Specific [place] Urine Protein (NEGATIVE) mg/dL Urine Glucose (UA) (NEGATIVE) mg/dL Urine Ketones (NEGATIVE) mg/dL Urine Occult Blood (NEGATIVE) Urine Nitrite (NEGATIVE) Urine Bilirubin (NEGATIVE) Urine Urobilinogen (0.2) EU/dL Ur Leukocyte Esterase (NEGATIVE) Urine RBC (NOT SEEN) /HPF Urine WBC (NOT SEEN) /HPF Ur Squamous Epith Cells (NEGATIVE) /HPF Urine Bacteria (NEGATIVE) /HPF Urine Mucus (NEGATIVE) /LPF Дмитрий Results Last 24 Hours: Microbiology 11/09/17 01:10 Anaerobic Blood Culture - Final Blood - Venous - Lab Draw 11/09/17 01:00 Anaerobic Blood Culture - Final Blood - Venous Med Orders - Current: Current Medications Acetaminophen (Tylenol Extra Strength) 1,000 mg PO TID PRN PRN Reason: Pain Last Admin: 11/09/17 04:43 Dose: 1,000 mg Apixaban (Eliquis) 5 mg PO BID [facility] Last Admin: 11/09/17 07:52 Dose: 5 mg Atorvastatin Calcium (Lipitor) 40 mg PO DAILY [facility] Last Admin: 11/09/17 07:52 Dose: 40 mg Diltiazem HCl (Dilacor Xr) 240 mg PO DAILY [facility] Last Admin: 11/09/17 07:53 Dose: 240 mg Docusate Sodium (Colace) 100 mg PO BID PRN PRN Reason: Constipation Ferrous Sulfate (Ferrous Sulfate) 325 mg PO Q48H [facility] Furosemide (Lasix) 40 mg PO DAILY [facility] Last Admin: 11/09/17 07:52 Dose: 40 mg Hydralazine HCl (Apresoline) 50 mg PO TIDMEALS [facility] Last Admin: 11/09/17 07:56 Dose: 50 mg Sodium Chloride (Normal Saline) 1,000 mls @ 75 mls/hr IV ASDIRECTED [facility] Last Admin: 11/09/17 03:00 Dose: 75 mls/hr Levetiracetam (Keppra) 1,500 mg PO BID [facility] Last Admin: 11/09/17 07:53 Dose: 1,500 mg Lisinopril (Prinivil) 5 mg PO DAILY [facility] Last Admin: 11/09/17 07:53 Dose: 5 mg Magnesium Oxide (Magnesium Oxide) 400 mg PO DAILY@1200 [facility] Melatonin (Melatonin) 3 mg PO BEDTIME [facility] Metoprolol Tartrate (Lopressor) 100 mg PO DAILY [facility] Last Admin: 11/09/17 07:54 Dose: 100 mg Phenytoin Sodium (Phenytoin) 300 mg PO BEDTIME [facility] Trimethoprim/Sulfamethoxazole (Septra Ds) 1 tab PO Q12H [facility] Last Admin: 11/09/17 03:05 Dose: 1 tab - Exam General: Alert, Oriented, Cooperative, No Acute Distress HEENT: Mucous Membr. Moist/[place] Neck: Supple, Trachea Midline, No Thyromegaly. No: Lymphadenopathy Lungs: Clear to Auscultation, Normal Respiratory Effort Cardiovascular: Regular Rate, Regular Rhythm, No Murmurs GI/Abdominal Exam: Normal Bowel Sounds, Soft, No Organomegaly, No Distention, No Mass, Tender (mild generalized tenderness without rebound, rigidity, or guarding) Extremities: Normal Inspection, Pedal Edema (trace bilaterally) Peripheral Pulses: 2+: Radial (L), Radial (R) Skin: Warm, Dry, Intact Neurological: No New Focal Deficit - Problem List & Annotations (1) Hyponatremia SNOMED Code(s): 34822836 Code(s): E87.1 - HYPO-OSMOLALITY AND HYPONATREMIA Status: Acute Current Visit: Yes (2) UTI, Urinary tract infectious disease SNOMED Code(s): 80753789 Code(s): N39.0 - URINARY TRACT INFECTION, SITE NOT SPECIFIED Status: Acute Current Visit: Yes (3) Urinary retention SNOMED Code(s): 042049862 Code(s): R33.9 - RETENTION OF URINE, UNSPECIFIED Status: Acute Current Visit: Yes (4) Anemia SNOMED Code(s): 459844052 Code(s): D64.9 - ANEMIA, UNSPECIFIED Status: Acute Current Visit: No Qualifiers: Anemia type: iron deficiency Iron deficiency anemia type: chronic blood loss Qualified Code(s): D50.0 - Iron deficiency anemia secondary to blood loss (chronic) (5) Acute kidney injury SNOMED Code(s): 52058457 Code(s): N17.9 - ACUTE KIDNEY FAILURE, UNSPECIFIED Status: Acute Current Visit: Yes (6) CKD (chronic kidney disease) SNOMED Code(s): 785306018 Code(s): N18.9 - CHRONIC KIDNEY DISEASE, UNSPECIFIED Status: Chronic Current Visit: No Qualifiers: Chronic kidney disease stage: stage 3 (moderate) Qualified Code(s): N18.3 - Chronic kidney disease, stage 3 (moderate) (7) Seizure disorder SNOMED Code(s): 738100127 Code(s): G40.909 - EPILEPSY, UNSP, NOT INTRACTABLE, WITHOUT STATUS EPILEPTICUS Status: Chronic Current Visit: Yes (8) DM2 (diabetes mellitus, type 2) SNOMED Code(s): 58127348 Code(s): E11.9 - TYPE 2 DIABETES MELLITUS WITHOUT COMPLICATIONS Status: Chronic Current Visit: No Qualifiers: Diabetes mellitus nursing home insulin use: without terminal operations manager use Diabetes mellitus complication status: without complication Qualified Code(s): E11.9 - Type 2 diabetes mellitus without complications (9) Hypercholesteremia SNOMED Code(s): 28826925 Code(s): E78.00 - PURE HYPERCHOLESTEROLEMIA, UNSPECIFIED Status: Chronic Current Visit: No (10) Hypertension SNOMED Code(s): 29474516 Code(s): I10 - ESSENTIAL (PRIMARY) HYPERTENSION Status: Chronic Current Visit: No Qualifiers: Hypertension type: essential hypertension Qualified Code(s): I10 - Essential (primary) hypertension (11) CHF (congestive heart failure) SNOMED Code(s): 41921372 Code(s): I50.9 - HEART FAILURE, UNSPECIFIED Status: Chronic Current Visit : Yes Qualifiers: Heart failure type: diastolic Heart failure chronicity: chronic Qualified Code(s): I50.32 - Chronic diastolic (congestive) heart failure (12) Atrial fibrillation SNOMED Code(s): 68466618 Code(s): I48.91 - UNSPECIFIED ATRIAL FIBRILLATION Status: Chronic Current Visit: Yes Qualifiers: Atrial fibrillation type: paroxysmal Qualified Code(s): I48.0 - Paroxysmal atrial fibrillation (13) GERD (gastroesophageal reflux disease) SNOMED Code(s): 492762738 Code(s): K21.9 - GASTRO-ESOPHAGEAL REFLUX DISEASE WITHOUT ESOPHAGITIS Status: Chronic Current Visit: Yes Qualifiers: Esophagitis presence: esophagitis presence not specified Qualified Code(s) : K21.9 - Gastro-esophageal reflux disease without esophagitis - Problem List Review Problem List Initiated/Reviewed/Updated: Yes - My Orders Last 24 Hours: My Active Orders 11/09/17 02:00 Sulfamethoxazole/Trimethoprim [Septra DS] 1 tab PO Q12H 11/09/17 02:12 CULTURE URINE [RM] Routine 11/09/17 02:13 Acetaminophen [Tylenol Extra Strength] 1,000 mg PO TID PRN Docusate Sodium [Colace] 100 mg PO BID PRN 11/09/17 02:15 Sodium Chloride 0.9% [Normal Saline] 1,000 ml IV ASDIRECTED 11/09/17 02:18 Up With Assistance [RC] 08,20 Anticoagulation Contraindications VTE [AST] Per Unit Routine Resuscitation Status Routine 11/09/17 02:19 Notify Provider Vital Signs [RC] 06,10,14,18,22,02 Oxygen Therapy [RC] PRN Vital Signs [RC] 06,10,14,18,22,02 11/09/17 02:43 Blood Glucose Check, Bedside [] 07,11,17,20 11/09/17 05:00 Bermudez Catheter Insertion [Insert Urinary Catheter] [OM.PC] Q24H 11/09/17 05:23 Urinary Catheter Assessment [] 08,11/09/17 08:00 Apixaban [Eliquis] 5 mg PO BID Diltiazem [Dilacor XR] 240 mg PO DAILY Furosemide [Lasix] 40 mg PO DAILY Lisinopril [Prinivil] 5 mg PO DAILY Metoprolol Tartrate [Lopressor] 100 mg PO DAILY atorvaSTATin [Lipitor] 40 mg PO DAILY hydrALAZINE [Apresoline] 50 mg PO TIDMEALS levETIRAcetam [Keppra] 1,500 mg PO BID 11/09/17 12:00 Magnesium Oxide 400 mg PO DAILY@1200 11/09/17 20:00 Melatonin 3 mg PO BEDTIME Phenytoin 300 mg PO BEDTIME 11/10/17 12:00 Ferrous Sulfate 325 mg PO Q48H - Assessment Assessment:: 82 yo female admitted with hyponatremia as well as UTI and now urinary retention. Feeling some better this morning but still tired and weak. VSS. Labs slightly improved today overall. - Plan Plan:: #1 Hyponatremia - Improvement with IV hydration supports likely cause of hypovolemic hyponatremia, likely related to excess water intake coupled with minimal sodium intake since hospital dismissal. - Sodium improvement of 3 mEq is appropriate over a 12 hour period. Will continue NS @ 75 cc/hr. Recheck Na late afternoon/evening. - Will need to monitor I/O closely in case she will need additional lasix as she did have a CHF exacerbation in [place] after receiving IV fluids. #2 UTI #3 Urinary Retention - Dysuria no longer an issue with catheter in place. No evidence of developing sepsis (WBC normal, no tachycardia or fever). - Discussed not ideal to leave catheter in place for an extended period of time but urinary retention likely contributed to current UTI. Therefore, discussed option to leave catheter in place until urology appointment this week, and she and her daughter agree. - This will also be helpful for I/O monitoring. - Continue bactrim. - Urine culture pending. 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 - Will resume aspirin at bedtime per patient's home schedule. - Recheck Hgb in the am. #5 ADELAIDA superimposed on CKD stage III - Lamp Stack Developer down to 1.0, which is improved but still slightly above baseline of around 0.8. - Continue IV fluids as above. - Recheck labs in the am. #6 Seizure Disorder - Continue phenytoin and keppra. - As noted previously, doubt contribution from these medications to hyponatremia. #7 Diabetes Mellitus, Type II - Hold metformin while hospitalized. - QID glucoses have been reasonable. - Will start SSI PRN. #8 Hyperlipidemia - Continue atorvastatin. #9 Hypertension - Continue home antihypertensives. #10 Chronic diastolic CHF - Dyspnea now resolved. Weight stable since floor admission (initial weight lower but different scale in the ER). Lung exam remains normal and minimal peripheral edema stable on exam. - Significance of elevated BNP therefore questionable. - Will monitor I/O closely and give additional lasix dosing later today depending on I/O balance and symptoms. #11 Paroxysmal atrial fibrillation - Continue home medications. - Patient is on tartrate formulation of metoprolol once/day, which is not typical dosing. Has done fine on this and was continued that way while hospitalized in [place] as well. Will, therefore, continue this will admitted here as well. - Patient is on eliquis for anticoagulation. #12 GERD - Continue to hold omeprazole for now in the absence of symptoms as well as potential for exacerbating hyponatremia and interaction with phenytoin. - Will reassess necessity depending on Hgb trend. She will remain on acute cares today - anticipate this will be required until at least Saturday. Discussed potential need for swing bed after this and she will consider. Will reassess strength/functional status tomorrow and order PT/OT consult for Saturday depending on how she is doing. No VTE prophylaxis is warranted given she is therapeutically anticoagulated on eliquis. Upon discussion, she wishes to be DNR/DNI. Daughter agrees she is at her normal mental status and should be able to make this decision herself; code status will remain DNR/DNI.
[2017-11-09] MEDS: Magnesium Oxide 400 MG Tab PO SCH (11:48)
--- NOTE | 2017-11-09 18:35 | PCM.SN ---
- Free Text/Narrative Note: Sodium up to 129 this pm. I/O balance is negative. Talked with nursing staff who reported the patient is doing well. Will d/c IV fluids and place her on a 1500 mL fluid restriction as she was on in [place]. Recheck labs in the am and will determine next steps from there.
[2017-11-09] MEDS: Aspirin 81 MG Tab.EC PO SCH (19:26)
[2017-11-09] MEDS: Phenytoin 100 MG Cap.ER PO SCH (19:28)
[2017-11-09] MEDS: Melatonin 3 MG Tab PO SCH (19:29)
[2017-11-10] MEDS: Sulfamethoxazole/Trimethoprim 800-160 MG Tab PO SCH ×2 (01:51→14:28)
[2017-11-10] MEDS: Sodium Chloride 0.9% 10 ML Syringe FLUSH SCH ×3 (02:05→22:53)
[2017-11-10] MEDS: Apixaban 2.5 MG Tab PO SCH ×2 (07:44→22:52)
[2017-11-10] MEDS: Diltiazem 240 MG Cap.ER PO SCH (07:45)
[2017-11-10] MEDS: atorvaSTATin 40 MG Tab PO SCH (07:45)
[2017-11-10] MEDS: Metoprolol Tartrate 50 MG Tab PO SCH (07:45)
[2017-11-10] MEDS: levETIRAcetam 500 MG Tab PO SCH ×2 (07:47→20:57)
[2017-11-10] MEDS: Lisinopril 5 MG Tab PO SCH (07:47)
[2017-11-10] MEDS: hydrALAZINE 25 MG Tab PO SCH ×3 (07:48→18:07)
[2017-11-10] MEDS: Furosemide 40 MG Tab PO SCH (07:48)
[2017-11-10 08:05] LABS: ANION GAP 14.2 mmol/L (10-20)
[2017-11-10] MEDS ORDERED: Psyllium 0.52 GM Cap PO ONE (08:36)
--- NOTE | 2017-11-10 08:50 | PCM.PN ---
- General Info Date of Service: 11/10/17 Subjective Update: Patient is feeling much better this am. Feels strength is improving but not yet back to normal. Has not walked in the halls at all. Wonders if we can try take the catheter out today. Is also requesting some metamucil to help with having a BM; no BM since admission. Otherwise denies any shortness of breath, leg swelling, abdominal pain, or nausea. ROS negative as below. - Review of Systems General: Reports: No Symptoms HEENT: Reports: No Symptoms Pulmonary: Reports: No Symptoms Cardiovascular: Reports: No Symptoms Gastrointestinal: Reports: Constipation. Denies: Abdominal Pain, Nausea, Vomiting Genitourinary: Reports: No Symptoms Musculoskeletal: Reports: No Symptoms Skin: Reports: No Symptoms Neurological: Reports: No Symptoms - Patient Data Vitals - Most Recent: Last Vital Signs Temp 36.8 C 11/10/17 06:00 Pulse 81 11/10/17 07:45 Resp 19 11/10/17 06:00 BP 147/56 H 11/10/17 07:45 Pulse Ox 95 11/10/17 06:00 Weight - Most Recent: 74.049 kg I&O - Last 24 Hours: Intake & Output 11/09/17 11/10/17 11/10/17 22:59 06:59 14:59 Intake Total 2212 620 180 Output Total 600 2000 Balance 1619 -1380 180 Lab Results Last 24 Hours: Laboratory Results - last 24 hr 11/09/17 11/09/17 11/09/17 Range/Units 07:49 07:49 10:16 WBC 8.9 (4.0-10.0) x10^3/uL RBC 3.01 L (4.00-5.50) x10^6/uL Hgb 9.1 L (12.0-16.0) g/dL Hct 27.6 L Cancelled (33.0-47.0) % MCV 91.7 (78.0-93.0) fL MCH 30.2 (26.0-32.0) pg MCHC 33.0 (32.0-36.0) g/dL RDW Coeff of Chiqui 15.1 H (10.0-15.0) % Plt Count 283 (130-400) x10^3/uL Neut % (Auto) 76.4 (50.0-80.0) % Lymph % (Auto) 10.8 L (25.0-50.0) % [place] % (Auto) 11.0 (2.0-11.0) % Eos % (Auto) 1.2 (0.0-4.0) % Baso % (Auto) 0.6 (0.2-1.2) % POC Sodium Sodium 125 L* (138-146) mmol/L POC Potassium Potassium 4.3 (3.5-4.9) mmol/L POC Chloride Chloride 92 L (98-109) mmol/L Carbon Dioxide 21 (21-32) mmol/L POC Total CO2 Anion Gap 16.3 (10-20) mmol/L POC Anion Gap POC BUN BUN 15 (7-18) mg/dL Creatinine 1.0 (0.55-1.02) mg/dL POC Creatinine Est Cr Clr Drug Dosing 42.00 mL/min Estimated GFR (MDRD) 53 Glucose 133 H (74-106) mg/dL POC Glucose Calcium 8.9 (8.5-10.1) mg/dL NT-Pro-B Natriuret Pep 3707 H (<=450) pg/mL 11/09/17 11/09/17 11/09/17 Range/Units 10:27 10:46 16:43 WBC (4.0-10.0) x10^3/uL RBC (4.00-5.50) x10^6/uL Hgb (12.0-16.0) g/dL Hct (33.0-47.0) % MCV (78.0-93.0) fL MCH (26.0-32.0) pg MCHC (32.0-36.0) g/dL RDW Coeff of Chiqui (10.0-15.0) % Plt Count (130-400) x10^3/uL Neut % (Auto) (50.0-80.0) % Lymph % (Auto) (25.0-50.0) % [place] % (Auto) (2.0-11.0) % Eos % (Auto) (0.0-4.0) % Baso % (Auto) (0.2-1.2) % POC Sodium Cancelled Sodium (138-146) mmol/L POC Potassium Cancelled Potassium (3.5-4.9) mmol/L POC Chloride Cancelled Chloride (98-109) mmol/L Carbon Dioxide (21-32) mmol/L POC Total CO2 Cancelled Anion Gap (10-20) mmol/L POC Anion Gap Cancelled POC BUN Cancelled BUN (7-18) mg/dL Creatinine (0.55-1.02) mg/dL POC Creatinine Cancelled Est Cr Clr Drug Dosing mL/min Estimated GFR (MDRD) Glucose (74-106) mg/dL POC Glucose Cancelled 199 H 113 H Calcium (8.5-10.1) mg/dL NT-Pro-B Natriuret Pep (<=450) pg/mL 11/09/17 11/09/17 11/10/17 Range/Units 17:37 19:33 06:23 WBC (4.0-10.0) x10^3/uL RBC (4.00-5.50) x10^6/uL Hgb (12.0-16.0) g/dL Hct (33.0-47.0) % MCV (78.0-93.0) fL MCH (26.0-32.0) pg MCHC (32.0-36.0) g/dL RDW Coeff of Chiqui (10.0-15.0) % Plt Count (130-400) x10^3/uL Neut % (Auto) (50.0-80.0) % Lymph % (Auto) (25.0-50.0) % [place] % (Auto) (2.0-11.0) % Eos % (Auto) (0.0-4.0) % Baso % (Auto) (0.2-1.2) % POC Sodium Sodium 129 L* (138-146) mmol/L POC Potassium Potassium (3.5-4.9) mmol/L POC Chloride Chloride (98-109) mmol/L Carbon Dioxide (21-32) mmol/L POC Total CO2 Anion Gap (10-20) mmol/L POC Anion Gap POC BUN BUN (7-18) mg/dL Creatinine (0.55-1.02) mg/dL POC Creatinine Est Cr Clr Drug Dosing mL/min Estimated GFR (MDRD) Glucose (74-106) mg/dL POC Glucose 220 H 134 H Calcium (8.5-10.1) mg/dL NT-Pro-B Natriuret Pep (<=450) pg/mL 11/10/17 11/10/17 Range/Units 07:40 07:40 WBC 6.5 (4.0-10.0) x10^3/uL RBC 3.02 L (4.00-5.50) x10^6/uL Hgb 9.0 L (12.0-16.0) g/dL Hct 27.6 L (33.0-47.0) % MCV 91.4 (78.0-93.0) fL MCH 29.8 (26.0-32.0) pg MCHC 32.6 (32.0-36.0) g/dL RDW Coeff of Chiqui 15.2 H (10.0-15.0) % Plt Count 276 (130-400) x10^3/uL Neut % (Auto) 74.1 (50.0-80.0) % Lymph % (Auto) 12.9 L (25.0-50.0) % [place] % (Auto) 10.6 (2.0-11.0) % Eos % (Auto) 1.8 (0.0-4.0) % Baso % (Auto) 0.6 (0.2-1.2) % POC Sodium Sodium 131 L (138-146) mmol/L POC Potassium Potassium 4.2 (3.5-4.9) mmol/L POC Chloride Chloride 99 (98-109) mmol/L Carbon Dioxide 22 (21-32) mmol/L POC Total CO2 Anion Gap 14.2 (10-20) mmol/L POC Anion Gap POC BUN BUN 12 (7-18) mg/dL Creatinine 1.0 (0.55-1.02) mg/dL POC Creatinine Est Cr Clr Drug Dosing 42.00 mL/min Estimated GFR (MDRD) 53 Glucose 137 H (74-106) mg/dL POC Glucose Calcium 8.9 (8.5-10.1) mg/dL NT-Pro-B Natriuret Pep (<=450) pg/mL Дмитрий Results Last 24 Hours: Microbiology 11/09/17 01:10 Aerobic Blood Culture - Preliminary Blood - Venous - Lab Draw NO GROWTH AFTER 1 DAY Anaerobic Blood Culture - Final 11/09/17 01:00 Aerobic Blood Culture - Preliminary Blood - Venous NO GROWTH AFTER 1 DAY Anaerobic Blood Culture - Final Med Orders - Current: Current Medications Acetaminophen (Tylenol Extra Strength) 1,000 mg PO TID PRN PRN Reason: Pain Last Admin: 11/09/17 04:43 Dose: 1,000 mg Apixaban (Eliquis) 5 mg PO BID [facility] Last Admin: 11/10/17 07:44 Dose: 5 mg Aspirin (Halfprin) 81 mg PO BEDTIME [facility] Last Admin: 11/09/17 19:26 Dose: 81 mg Atorvastatin Calcium (Lipitor) 40 mg PO DAILY [facility] Last Admin: 11/10/17 07:45 Dose: 40 mg Diltiazem HCl (Dilacor Xr) 240 mg PO DAILY [facility] Last Admin: 11/10/17 07:45 Dose: 240 mg Docusate Sodium (Colace) 100 mg PO BID [facility] Ferrous Sulfate (Ferrous Sulfate) 325 mg PO Q48H [facility] Furosemide (Lasix) 40 mg PO DAILY [facility] Last Admin: 11/10/17 07:48 Dose: 40 mg Hydralazine HCl (Apresoline) 50 mg PO TIDMEALS [facility] Last Admin: 11/10/17 07:48 Dose: 50 mg Levetiracetam (Keppra) 1,500 mg PO BID [facility] Last Admin: 11/10/17 07:47 Dose: 1,500 mg Lisinopril (Prinivil) 5 mg PO DAILY [facility] Last Admin: 11/10/17 07:47 Dose: 5 mg Magnesium Oxide (Magnesium Oxide) 400 mg PO DAILY@1200 [facility] Last Admin: 11/09/17 11:48 Dose: 400 mg Melatonin (Melatonin) 3 mg PO BEDTIME [facility] Last Admin: 11/09/17 19:29 Dose: 3 mg Metoprolol Tartrate (Lopressor) 100 mg PO DAILY [facility] Last Admin: 11/10/17 07:45 Dose: 100 mg Phenytoin Sodium (Phenytoin) 300 mg PO BEDTIME [facility] Last Admin: 11/09/17 19:28 Dose: 300 mg Psyllium Hydrophilic Mucilloid (Metamucil) 1.04 gm PO ONETIME ONE Stop: 11/10/17 08:37 Sodium Chloride (Saline Flush) 10 ml FLUSH BID [facility] Last Admin: 11/10/17 07:48 Dose: 10 ml Trimethoprim/Sulfamethoxazole (Septra Ds) 1 tab PO Q12H [facility] Last Admin: 11/10/17 01:51 Dose: 1 tab Discontinued Medications Docusate Sodium (Colace) 100 mg PO BID PRN PRN Reason: Constipation Sodium Chloride (Normal Saline) 1,000 mls @ 75 mls/hr IV ASDIRECTED [facility] Last Admin: 11/09/17 16:15 Dose: 75 mls/hr - Exam General: Alert, Oriented, Cooperative, No Acute Distress HEENT: Mucous Membr. Moist/[place] Neck: Supple, Trachea Midline, No Thyromegaly. No: Lymphadenopathy Lungs: Clear to Auscultation, Normal Respiratory Effort Cardiovascular: Regular Rate, Regular Rhythm, No Murmurs GI/Abdominal Exam: Normal Bowel Sounds, Soft, Non-Tender, No Organomegaly, No Distention, No Mass Extremities: Normal Inspection, Pedal Edema (trace bilaterally) Peripheral Pulses: 2+: Radial (L), Radial (R) Skin: Warm, Dry, Intact Neurological: No New Focal Deficit - Problem List & Annotations (1) Hyponatremia SNOMED Code(s): 91627365 Code(s): E87.1 - HYPO-OSMOLALITY AND HYPONATREMIA Status: Acute Current Visit: Yes (2) UTI, Urinary tract infectious disease SNOMED Code(s): 26151954 Code(s): N39.0 - URINARY TRACT INFECTION, SITE NOT SPECIFIED Status: Acute Current Visit: Yes (3) Urinary retention SNOMED Code(s): 614177856 Code(s): R33.9 - RETENTION OF URINE, UNSPECIFIED Status: Acute Current Visit: Yes (4) Anemia SNOMED Code(s): 061927733 Code(s): D64.9 - ANEMIA, UNSPECIFIED Status: Acute Current Visit: No Qualifiers: Anemia type: iron deficiency Iron deficiency anemia type: chronic blood loss Qualified Code(s): D50.0 - Iron deficiency anemia secondary to blood loss (chronic) (5) Acute kidney injury SNOMED Code(s): 36972809 Code(s): N17.9 - ACUTE KIDNEY FAILURE, UNSPECIFIED Status: Acute Current Visit: Yes (6) CKD (chronic kidney disease) SNOMED Code(s): 548863384 Code(s): N18.9 - CHRONIC KIDNEY DISEASE, UNSPECIFIED Status: Chronic Current Visit: No Qualifiers: Chronic kidney disease stage: stage 3 (moderate) Qualified Code(s): N18.3 - Chronic kidney disease, stage 3 (moderate) (7) Seizure disorder SNOMED Code(s): 912550311 Code(s): G40.909 - EPILEPSY, UNSP, NOT INTRACTABLE, WITHOUT STATUS EPILEPTICUS Status: Chronic Current Visit: Yes (8) DM2 (diabetes mellitus, type 2) SNOMED Code(s): 08467901 Code(s): E11.9 - TYPE 2 DIABETES MELLITUS WITHOUT COMPLICATIONS Status: Chronic Current Visit: No Qualifiers: 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: without half-way use Diabetes mellitus complication status: without complication Qualified Code(s): E11.9 - Type 2 diabetes mellitus without complications (9) Hypercholesteremia SNOMED Code(s): 50570832 Code(s): E78.00 - PURE HYPERCHOLESTEROLEMIA, UNSPECIFIED Status: Chronic Current Visit: No (10) Hypertension SNOMED Code(s): 06080676 Code(s): I10 - ESSENTIAL (PRIMARY) HYPERTENSION Status: Chronic Current Visit: No Qualifiers: Hypertension type: essential hypertension Qualified Code(s): I10 - Essential (primary) hypertension (11) CHF (congestive heart failure) SNOMED Code(s): 67777994 Code(s): I50.9 - HEART FAILURE, UNSPECIFIED Status: Chronic Current Visit : Yes Qualifiers: Heart failure type: diastolic Heart failure chronicity: chronic Qualified Code(s): I50.32 - Chronic diastolic (congestive) heart failure (12) Atrial fibrillation SNOMED Code(s): 43602513 Code(s): I48.91 - UNSPECIFIED ATRIAL FIBRILLATION Status: Chronic Current Visit: Yes Qualifiers: Atrial fibrillation type: paroxysmal Qualified Code(s): I48.0 - Paroxysmal atrial fibrillation (13) GERD (gastroesophageal reflux disease) SNOMED Code(s): 549079075 Code(s): K21.9 - GASTRO-ESOPHAGEAL REFLUX DISEASE WITHOUT ESOPHAGITIS Status: Chronic Current Visit: Yes Qualifiers: Esophagitis presence: esophagitis presence not specified Qualified Code(s) : K21.9 - Gastro-esophageal reflux disease without esophagitis (14) Constipation SNOMED Code(s): 29231300 Code(s): K59.00 - CONSTIPATION, UNSPECIFIED Status: Acute Current Visit: Yes Qualifiers: Constipation type: unspecified constipation type Qualified Code(s): K59.00 - Constipation, unspecified - Problem List Review Problem List Initiated/Reviewed/Updated: Yes - My Orders Last 24 Hours: My Active Orders 11/09/17 08:00 Apixaban [Eliquis] 5 mg PO BID Diltiazem [Dilacor XR] 240 mg PO DAILY Furosemide [Lasix] 40 mg PO DAILY Lisinopril [Prinivil] 5 mg PO DAILY Metoprolol Tartrate [Lopressor] 100 mg PO DAILY atorvaSTATin [Lipitor] 40 mg PO DAILY hydrALAZINE [Apresoline] 50 mg PO TIDMEALS levETIRAcetam [Keppra] 1,500 mg PO BID 11/09/17 12:00 Magnesium Oxide 400 mg PO DAILY@1200 11/09/17 20:00 Aspirin [Halfprin] 81 mg PO BEDTIME Melatonin 3 mg PO BEDTIME Phenytoin 300 mg PO BEDTIME 11/10/17 08:00 Sodium Chloride 0.9% [Saline Flush] 10 ml FLUSH BID 11/10/17 08:34 Communication Order [RC] ROUTINE 11/10/17 08:36 Psyllium [Metamucil] 1.04 gm PO ONETIME ONE 11/10/17 08:37 OT Evaluation and Treatment [CONS] Routine PT Evaluation and Treatment [CONS] Routine 11/10/17 08:45 Docusate Sodium [Colace] 100 mg PO BID 11/10/17 12:00 Ferrous Sulfate 325 mg PO Q48H 11/10/17 Breakfast Fluid Restriction [DIET] 11/11/17 05:11 BASIC METABOLIC PANEL,BMP [CHEM] Routine CBC WITH AUTO DIFF [HEME] Routine - Assessment Assessment:: 82 yo female admitted with hyponatremia as well as UTI and urinary retention. Doing much better this am. VSS. Labs continue to improve as well. - Plan Plan:: #1 Hyponatremia - Cause likely multifactorial with urinary retention, recurrence of UTI, and inadequate PO intake of salt. - Na up to 131 this am. - Fluids were stopped last night after Na returned at 129. - Will hold off on further IV hydration at this point. - Limit water intake to 1500 cc/day. Can drink other liquids in addition but that should be electrolyte containing. #2 UTI #3 Urinary Retention - Has not developed any evidence of sepsis. - Reasonable to try d/c of catheter given her interest in doing so. Discussed risk that this will need to be replaced and she voices understanding. - Nursing to remove catheter and proceed with voiding trial today. - Will do bladder scans every 8 hours and I/O catheterize for scan >500 cc. - If needs I/O catheterization 3+ times, will consider continuing with this vs replacing indwelling catheter. - Although in the setting of recently having an indwelling catheter, symptoms were of simple cystitis. Therefore, would plan to treat with a 3 day course of bactrim per current guidelines. Antibiotic course can be extended if indicated based on symptoms. - Urine culture pending. 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 - Will continue to monitor daily. 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 Question if this is her baseline here as comparison was to clinic labs. - No further intervention is warranted at this time. - Continue to follow labs daily. #6 Seizure Disorder - Continue phenytoin and keppra. - As noted previously, doubt contribution from these medications to hyponatremia. #7 Diabetes Mellitus, Type II - Hold metformin while hospitalized. - QID glucoses have been reasonable. - Has not needed any SSI. #8 Hyperlipidemia - Continue atorvastatin. #9 Hypertension - BP up at times but overall acceptable. - Continue home antihypertensives. #10 Chronic diastolic CHF - Dyspnea remains resolved, weight is down today, and exam remains unchanged. Significance of elevated BNP therefore questionable. - She tolerated the fluid load without any issues. - Continue lasix per home schedule. Can add additional dosing if need be for recurrence of shortness of breath or other change in clinical status. #11 Paroxysmal atrial fibrillation - Continue home medications. - Patient is on tartrate formulation of metoprolol once/day, which is not typical dosing. Has done fine on this and was continued that way while hospitalized in [place] as well. Will, therefore, continue this will admitted here as well. - Patient is on eliquis for anticoagulation. #12 GERD - Continue to hold omeprazole for now in the absence of symptoms as well as potential for exacerbating hyponatremia and interaction with phenytoin. #13 Constipation - Will schedule stool softener and do a dose of metamucil today per patient request. She will remain on acute cares today as we are proceeding with the voiding trial and she would benefit from a PT/OT evaluation prior to dismissal home which cannot be done until tomorrow. She may benefit from swing bed after the acute admission, especially given recent admission to [place] as well. PT/OT consults ordered for tomorrow. If she is not felt to benefit from swing bed, anticipate discharge home tomorrow assuming sodium continues to improve. No VTE prophylaxis is warranted given she is therapeutically anticoagulated on eliquis. Upon discussion on admission and confirmation yesterday am, she wishes to be DNR/DNI. Daughter at bedside yesterday and agreed she is at her normal mental status and did not feel there was any reason the patient could not make this decision herself.
[2017-11-10] MEDS ORDERED: Ferrous Sulfate 325 MG Tab PO SCH (12:00)
[2017-11-10] MEDS: Magnesium Oxide 400 MG Tab PO SCH (12:16)
[2017-11-10] MEDS: Docusate Sodium 100 MG Cap PO SCH ×2 (12:17→20:59)
[2017-11-10] MEDS: Phenytoin 100 MG Cap.ER PO SCH (20:57)
[2017-11-10] MEDS: Aspirin 81 MG Tab.EC PO SCH (20:58)
[2017-11-10] MEDS: Melatonin 3 MG Tab PO SCH (20:58)
[2017-11-11] MEDS: Sulfamethoxazole/Trimethoprim 800-160 MG Tab PO SCH ×2 (02:23→14:01)
[2017-11-11] MEDS: Diltiazem 240 MG Cap.ER PO SCH (08:05)
[2017-11-11] MEDS: atorvaSTATin 40 MG Tab PO SCH (08:05)
[2017-11-11] MEDS: Docusate Sodium 100 MG Cap PO SCH (08:05)
[2017-11-11] MEDS: Metoprolol Tartrate 50 MG Tab PO SCH (08:05)
[2017-11-11] MEDS: Lisinopril 5 MG Tab PO SCH (08:05)
[2017-11-11] MEDS: levETIRAcetam 500 MG Tab PO SCH (08:05)
[2017-11-11] MEDS: Furosemide 40 MG Tab PO SCH (08:06)
[2017-11-11] MEDS: hydrALAZINE 25 MG Tab PO SCH ×3 (08:06→18:16)
[2017-11-11] MEDS: Sodium Chloride 0.9% 10 ML Syringe FLUSH SCH (08:07)
[2017-11-11] MEDS: Apixaban 2.5 MG Tab PO SCH (08:07)
[2017-11-11] MEDS ORDERED: Psyllium 0.52 GM Cap PO SCH (08:30)
[2017-11-11] MEDS ORDERED: Bisacodyl 10 MG Supp RECTAL ONE (08:54)
[2017-11-11] MEDS: Magnesium Oxide 400 MG Tab PO SCH (11:00)
--- NOTE | 2017-11-11 23:27 | PN ---
Progress Note for GRANT GOETZ Date: 11/11/2017 Room #: VM.214 This is an 82-year-old, seen [id number] for home health assessment today on 11/11/2017. I will periodically review this plan of care, need for home health is for nursing for teaching and assessments given change in blood thinners with atrial fibrillation. She is at risk for stroke. She also had recurrent seizures and recent prolonged admission in [place] for sepsis with new urinary retention requiring a Bermudez. She otherwise will need OT for cognitive assessment and home safety to ensure that she is taking her medications appropriately and that she is able to be left on supervise because currently she is staying with family and her son is checking on her as well. She will otherwise require PT for mobility. She is homebound due to her recent events of seizure. She is unable to drive. She needs the assist of another person to leave her home. I will periodically review this plan of care. MKA: 11/11/2017 23:00:56 MODL: 11/11/2017 23:19:06 /[id number]
--- NOTE | 2017-11-12 02:48 | DISCH ---
PRIMARY DISCHARGE DIAGNOSES: 1. Escherichia coli urinary tract infection complicated due to urinary retention. 2. Urinary retention, recurrent since recent admission in October for sepsis with a urinary tract infection, failed voiding trial. Does report possible history of stricture, but no previous procedures done. 3. Hyponatremia, acute, severe. Sodium 122 on admission up to 131 on discharge. The patient had not been following a fluid restriction. She had been recently started on Dilantin. She was possibly mildly dehydrated because sodium improved with fluids. 4. Chronic anemia. Hemoglobin is stable at 8.7 on discharge. 5. Chronic kidney disease. Creatinine improved down to 1.1 on discharge, which is around her baseline. 6. Chronic diastolic heart failure. 7. Essential hypertension. 8. Seizure disorder with recent seizures and an admission for sepsis, on Keppra chronically, but recently started on Dilantin. 9. Type 2 diabetes. Blood sugar is controlled. 10.Atrial fibrillation, recently started on Savaysa due to interaction with Eliquis and Dilantin. 11.Gastroesophageal reflux disease with previous esophagogastroduodenoscopy done in 03/2017, which showed her to have a few nonbleeding erosions in the stomach and mild possible portal hypertensive gastropathy. She was taking Prilosec. REASON FOR ADMISSION AND HOSPITAL COURSE: On the date of admission, this 82- year-old female who had a recent acute stay at [facility] in [place] was discharged home on 10/26. She was admitted on 10/17. She then followed up with myself on 11/04. She was feeling well. She was not having any pain. No burning with urination. Therefore, plan was to remove the Bermudez the next morning. She came into the clinic, and did have the Bermudez removed on the . The postvoid residual was at 335 mL, and she wanted to try to continue to void throughout the week. It was felt that she just started retaining. This led to some burning with urination, and overall dysuria at least 2 to 3 days prior to admission but no fever. She did have some lower abdominal pain and back pain. She was weak, and she was found to have a low sodium. She was staying with her daughter. Otherwise, the patient was admitted. She was placed on IV fluids, normal saline, and oral Bactrim, which she was tolerating okay. Culture grew E. coli. She had urinary retention, had to have the catheter placed, had a 1000 out, but did want to try another voiding trial yesterday, which did occur. She was constipated, had been having a bowel movement for several days. She had a small bowel movement today, but still was retaining 700 this morning and then 500 later in the day, so the Bermudez was replaced. She did have a good bowel movement before discharge. She was afebrile. She was not having any confusion. She was up, working with therapies. A discussion was had with her about going home with Home Health. She had been staying at her daughter's, and her family thought this was also a good idea. The patient will have a followup visit tomorrow with Urology that was also previously scheduled. She will see Dr. Montano in the clinic in November. She will keep the Bemrudez in place till seen by Urology. She will start the new medication Savaysa in place of Eliquis 60 mg daily to prevent stroke for her AFib. She will be on Bactrim twice daily for another 4 days. She will have a BMP in the clinic in 1 week. She will switch her Prilosec over to Protonix. She will continue on fiber to prevent constipation. Otherwise discharge vitals included temperature of 97.9, pulse 74, blood pressure 141/69, respiratory rate 18, and O2 94% on room air. In general, she is in no acute distress. Heart: She is irregular. I did not appreciate any murmur today. Lungs sounds are clear to auscultation bilaterally without crackles or wheezes. Abdomen has positive bowel sounds, soft, nontender, and nondistended. Mental Status: She is alert and orientated x3. She is in good spirits. Her extremities are warm and dry. No edema. Homans sign negative. It should also be noted that the patient is rescheduled for outpatient endoscopic ultrasound for a pancreatic mass by Dr. Guillermo on 12/09. She otherwise will have a followup chest CT after her visit with me in December due to the findings in her lingula, which were treated as pneumonia down at [facility]. Her antibiotics were fully completed during her stay in [place]. She was initially given Zosyn, and then she completed a 7-day course of cefepime and Levaquin on 10/24. She was also loaded with phenytoin on her recent stay. This is an 82-year-old, seen [id number] for home health assessment today on 11/11/2017. I will periodically review this plan of care, need for home health is for nursing for teaching and assessments given change in blood thinners with atrial fibrillation. She is at risk for stroke. She also had recurrent seizures and recent prolonged admission in [place] for sepsis with new urinary retention requiring a Bermudez. She otherwise will need OT for cognitive assessment and home safety to ensure that she is taking her medications appropriately and that she is able to be left on supervise because currently she is staying with family and her son is checking on her as well. She will otherwise require PT for mobility. She is homebound due to her recent events of seizure. She is unable to drive. She needs the assist of another person to leave her home. I will periodically review this plan of care. GRANTA: 11/11/2017 22:58:55 MODL: 11/12/2017 02:39:43 /[id number] YADY
== END 2017-11-11 18:40 | disposition home health service (06) | DRG 690 ==
LOC: VM.ED 23:16 → VM.MS 11-09 01:05
PROVIDERS: ADMIT Family Medicine; ATTEND Internal Medicine
DX: N39.0 Urinary tract infection, site not specified (principal); E87.1 Hypo-osmolality and hyponatremia; N17.9 Acute kidney failure, unspecified; I13.0 Hypertensive heart and chronic kidney disease with heart failure and stage 1 through stage 4 chronic kidney disease, or unspecified chronic kidney disease; I11.0 Hypertensive heart disease with heart failure; I50.9 Heart failure, unspecified; G40.209 Localization-related (focal) (partial) symptomatic epilepsy and epileptic syndromes with complex partial seizures, not intractable, without status epilepticus; E11.9 Type 2 diabetes mellitus without complications; M19.90 Unspecified osteoarthritis, unspecified site; I65.29 Occlusion and stenosis of unspecified carotid artery; I50.32 Chronic diastolic (congestive) heart failure; K76.6 Portal hypertension; B96.20 Unspecified Escherichia coli [E. coli] as the cause of diseases classified elsewhere; E78.5 Hyperlipidemia, unspecified; Z87.440 Personal history of urinary (tract) infections; Z66 Do not resuscitate; D50.0 Iron deficiency anemia secondary to blood loss (chronic); E86.0 Dehydration; E11.22 Type 2 diabetes mellitus with diabetic chronic kidney disease; N18.3 Chronic kidney disease, stage 3 (moderate); R33.9 Retention of urine, unspecified; G40.909 Epilepsy, unspecified, not intractable, without status epilepticus; I48.0 Paroxysmal atrial fibrillation; K59.00 Constipation, unspecified; E78.00 Pure hypercholesterolemia, unspecified; K31.89 Other diseases of stomach and duodenum; Z79.84 Long term (current) use of oral hypoglycemic drugs; Z79.01 Long term (current) use of anticoagulants; Z79.82 Long term (current) use of aspirin; Z79.899 Other long term (current) drug therapy; Z86.19 Personal history of other infectious and parasitic diseases
CPT/HCPCS: 36415; 51701; 51702; 51798; 80048; 80053; 81001; 82962; 83605; 83880; 84295; 85025; 87040; 87086; 87088; 87186; 94760; 97161-GP; 97165-GO; 99285; A9270-GY; J7030; J7050